=== PATIENT | female | born 1995 | race Caucasian/White ===

== ENCOUNTER 2018-01-21 07:00 | Emergency (ER) | payer SELFPAY ==
[2018-01-21] MEDS ORDERED: Acetaminophen/HYDROcodone 325-5 MG Tab PO ONE (07:17)
[2018-01-21] MEDS ORDERED: Bacitracin Oint 1 GM U/D Packet TOP ONE (07:19)
[2018-01-21 07:23] VITALS: BP 116/80
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
[2018-01-21] MEDS ORDERED: HYDROmorphone 0.5 MG/0.5 ML Syringe IM ONE (07:25)
[2018-01-21] MEDS ORDERED: Diphtheria,Pertussis(Acell),Tetanus Vaccine 0.5 ML SDV IM ONE (07:26)
== END 2018-01-21 09:01 | disposition home or self-care (01) ==
LOC: JP.ED 07:00
DX: T23.262A Burn of second degree of back of left hand, initial encounter (principal); T20.16XA Burn of first degree of forehead and cheek, initial encounter; T23.011A Burn of unspecified degree of right thumb (nail), initial encounter; Z88.2 Allergy status to sulfonamides; Z23 Encounter for immunization; X08.8XXA Exposure to other specified smoke, fire and flames, initial encounter; Y92.59 Other trade areas as the place of occurrence of the external cause
CPT/HCPCS: 90471; 90715; 96372; 99283; A9270; J1170

== ENCOUNTER 2022-01-06 06:20 | Emergency (ER) | payer SELFPAY ==
[2022-01-06 06:33] VITALS: BP 113/63; PULSE 90
[2022-01-06] MEDS ORDERED: Nitrofurantoin Monohydrate/Macrocrystalline 100 MG Cap PO ONE (07:35)
[2022-01-06] MEDS ORDERED: Phenazopyridine 95 MG Tab PO ONE (07:35)
== END 2022-01-06 07:58 | disposition home or self-care (01) ==
LOC: JP.ED 06:20
DX: N30.00 Acute cystitis without hematuria (principal); K21.9 Gastro-esophageal reflux disease without esophagitis; Z88.2 Allergy status to sulfonamides
CPT/HCPCS: 36415; 80053; 81001; 85025; 87086; 87088; 87186; 99284; A9270